=== PATIENT | male | born 1940 | race Caucasian/White ===

== ENCOUNTER 2017-04-21 10:36 | Emergency (ER) | payer OTHER, BC ==
[~2017-04-21] VITALS: Ht 175.3 cm; Wt 120.2 kg
[~2017-04-21 10:36] MED LIST: ASPIRIN; CLONIDINE; INSULIN; METFORMIN; MICARDIS
[2017-04-21 10:45] VITALS: BP_SYST 147
[2017-04-21] MEDS ORDERED: IBUPROFEN 800 MG TABLET PO ONE (11:00)
[2017-04-21] MEDS ORDERED: DIPH-TET-PERTUS Vaccine 0.5 ML VIAL (ADACEL) I.M. ONE (11:00)
[2017-04-21 11:55] VITALS: BP_SYST 136
== END 2017-04-21 11:55 | disposition home or self-care (01) ==
LOC: SED 10:36
DX: S91.332A Puncture wound without foreign body, left foot, initial encounter (principal); R03.0 Elevated blood-pressure reading, without diagnosis of hypertension; E11.9 Type 2 diabetes mellitus without complications; I10 Essential (primary) hypertension; W22.8XXA Striking against or struck by other objects, initial encounter; Y93.01 Activity, walking, marching and hiking; Y92.89 Other specified places as the place of occurrence of the external cause; Y99.8 Other external cause status
CPT/HCPCS: 90715; 99283

== ENCOUNTER 2019-12-09 03:50 | Inpatient (IN) | payer OTHER, BC, SELFPAY ==
[~2019-12-09] VITALS: Ht 175.3 cm; Wt 118.9 kg
[2019-12-09 04:00] VITALS: BP_SYST 166
[2019-12-09] MEDS ORDERED: LABE300T3 PO (04:49)
[2019-12-09] MEDS ORDERED: PIOG30TA70 PO (04:49)
[2019-12-09] MEDS ORDERED: LIP40 PO (04:49)
[2019-12-09] MEDS ORDERED: CAT.2 PO (04:49)
[2019-12-09] MEDS ORDERED: FURO-149 PO (04:49)
[2019-12-09] MEDS ORDERED: HYDR-4038 PO (04:49)
[2019-12-09] MEDS ORDERED: TAMS-11 PO (04:49)
[2019-12-09] MEDS ORDERED: FEBU80TA PO (04:49)
[2019-12-09 05:01] LABS: BILIRUBIN,URINE NEGATIVE (NEGATIVE); BLOOD, URINE NEGATIVE (NEGATIVE); CLARITY/URINE CLEAR (CLEAR); COLOR,URINE YELLOW (YELLOW); GLUCOSE,URINE 3+ (NEGATIVE); KETONES,URINE NEGATIVE (NEGATIVE); LEUKOCYTE ESTERASE ,URINE NEGATIVE (NEGATIVE); NITRITE, URINE NEGATIVE (NEGATIVE); PH,URINE 5.5 (5.0-8.0); PROTEIN URINE 1+ (NEGATIVE); UROBILINOGEN,URINE 0.2 (0.2-1.0)
[2019-12-09 05:11] LABS: BACTERIA,URINE FEW /HPF (None Seen); RBC,URINE 0-3 /HPF (0-3); WBC,URINE 0-3 /HPF (0-3)
[2019-12-09 05:11] LABS: BASOPHILS # (AUTO) 0.1 K/uL (0.0-0.2); EOSINOPHILS # (AUTO) 0.2 K/uL (0.0-0.4); EOSINOPHILS % (AUTO) 4.1 % (0.0-4.0); HEMATOCRIT 31.7 % (36-54); HEMOGLOBIN 10.5 g/dL (14.0-18.0); LYMPHOCYTES # (AUTO) 0.7 K/uL (1.0-5.5); LYMPHOCYTES % (AUTO) 13.7 % (20.5-51.5); MEAN CORPUSCULAR HEMOGLOBIN 30 pg (27-31); MEAN CORPUSCULAR HGB CONC 33 % (32-36); MEAN CORPUSCULAR VOLUME 91 fL (79.0-98.0); MONOCYTES # (AUTO) 0.6 K/uL (0.0-1.0); MONOCYTES % (AUTO) 11.3 % (1.7-9.3); NEUTROPHILS # (AUTO) 3.7 K/uL (1.8-7.7); NEUTROPHILS % (AUTO) 69.9 % (40.0-70.0); PLATELET COUNT (AUTO) 226 K/uL (130-430); RED BLOOD CELL COUNT(AUTO) 3.47 MIL/uL (4.2-6.2); WHITE BLOOD COUNT (AUTO) 5.3 K/uL (4.8-10.8)
[2019-12-09 05:24] LABS: ANION GAP 9 (5-15); CALCIUM 8.9 mg/dL (8.4-11.0); CHLORIDE 104 mmol/L (98-107); CREATININE 2.68 mg/dL (0.55-1.30); GLUCOSE 382 mg/dL (70-99); SODIUM SERUM 137 mmol/L (136-145); UREA NITROGEN, BLOOD 47 mg/dL (8-21)
[2019-12-09 05:27] LABS: PROTHROMBIN TIME 10.4 SECS (9.5-12.5)
[2019-12-09 05:29] LABS: ALANINE AMINOTRANSFERASE 58 U/L (12-78); ALBUMIN 3.1 g/dL (3.4-4.8); ASPARTATE AMINOTRANSFERASE 28 U/L (10-37); C-REACTIVE PROTEIN QUANT 0.3 mg/dL (0-0.5); LACTATE DEHYDROGENASE 208 U/L (85-227); TOTAL BILIRUBIN 0.9 mg/dL (0.0-1.0)
[2019-12-09] MEDS ORDERED: FUROSEMIDE 100 MG/10 ML VIAL IVP ONE (07:00)
[2019-12-09] MEDS ORDERED: ALBUTEROL MDI INHALATION 8 GM INH INH PRN (10:15)
[2019-12-09] MEDS ORDERED: ACETAMINOPHEN 325 MG TABLET PO PRN (10:15)
[2019-12-09] MEDS ORDERED: ASPIRIN 81 MG TAB.CHEW PO ONE (11:00)
[2019-12-09] MEDS ORDERED: hydrALAZINE HCL 25 MG TABLET PO ONE (11:00)
[2019-12-09] MEDS ORDERED: FAMOTIDINE 20 MG TABLET PO ONE (11:00)
[2019-12-09] MEDS ORDERED: ALBUTEROL SULFATE 0.083% 2.5 MG/3 ML VIAL.NEB INH PRN (12:30)
[2019-12-09] MEDS: INSULIN LISPRO SLIDING SCALE 100 UNITS/ML VIAL (humaLOG) SUBCUT PRN ×2 (12:35→21:43)
[2019-12-09] MEDS ORDERED: INSULIN Lispro 100 UNITS/ML VIAL (humaLOG) ONE (12:51)
[2019-12-09] MEDS ORDERED: METOLAZONE 5 MG TABLET PO ONE (15:00)
[2019-12-09] MEDS ORDERED: CARVEDILOL 12.5 MG TABLET (COREG) PO ONE (17:00)
[2019-12-09] MEDS ORDERED: INSULIN GLARGINE 100 UNITS/ML 10 ML VIAL SUBCUT ONE (17:30)
[2019-12-09 20:53] VITALS: BP_SYST 132
[2019-12-09] MEDS ORDERED: hydrALAZINE HCL 25 MG TABLET PO SCH (21:00)
[2019-12-09] MEDS: hydrALAZINE HCL 25 MG TABLET PO SCH (21:40)
[2019-12-09] MEDS: TAMSULOSIN HCL 0.4 MG CAP PO SCH (21:40)
[2019-12-09] MEDS: FUROSEMIDE 40 MG/4 ML VIAL IVP SCH (21:43)
[2019-12-10] VITALS: BP_SYST 151
[2019-12-10 04:00] VITALS: BP_SYST 137
[2019-12-10] MEDS: INSULIN LISPRO SLIDING SCALE 100 UNITS/ML VIAL (humaLOG) SUBCUT PRN ×4 (06:21→21:26)
[2019-12-10] MEDS ORDERED: INSULIN NPH/REGULAR 70-30, 100 UNITS/ML, 10 ML VIAL SUBCUT SCH (07:00)
[2019-12-10 07:40] LABS: BASOPHILS # (AUTO) 0.1 K/uL (0.0-0.2); EOSINOPHILS # (AUTO) 0.2 K/uL (0.0-0.4); EOSINOPHILS % (AUTO) 3.9 % (0.0-4.0); HEMATOCRIT 32.8 % (36-54); HEMOGLOBIN 11.2 g/dL (14.0-18.0); LYMPHOCYTES # (AUTO) 0.8 K/uL (1.0-5.5); LYMPHOCYTES % (AUTO) 14.2 % (20.5-51.5); MEAN CORPUSCULAR HEMOGLOBIN 31 pg (27-31); MEAN CORPUSCULAR HGB CONC 34 % (32-36); MEAN CORPUSCULAR VOLUME 90 fL (79.0-98.0); MONOCYTES # (AUTO) 0.7 K/uL (0.0-1.0); MONOCYTES % (AUTO) 12.1 % (1.7-9.3); NEUTROPHILS # (AUTO) 3.9 K/uL (1.8-7.7); NEUTROPHILS % (AUTO) 68.8 % (40.0-70.0); PLATELET COUNT (AUTO) 248 K/uL (130-430); RED BLOOD CELL COUNT(AUTO) 3.66 MIL/uL (4.2-6.2); RED CELL DISTRIBUTION WIDTH 14.9 % (9.0-15.0); WHITE BLOOD COUNT (AUTO) 5.7 K/uL (4.8-10.8)
[2019-12-10 08:38] LABS: SODIUM SERUM 139 mmol/L (136-145)
[2019-12-10 08:39] LABS: ALANINE AMINOTRANSFERASE 53 U/L (12-78); ALBUMIN 1.3 g/dL (3.4-4.8); ANION GAP 9 (5-15); ASPARTATE AMINOTRANSFERASE 25 U/L (10-37); CALCIUM 9.5 mg/dL (8.4-11.0); CHLORIDE 104 mmol/L (98-107); CREATININE 2.59 mg/dL (0.55-1.30); GLUCOSE 280 mg/dL (70-99); POTASSIUM 3.7 mmol/L (3.5-5.1); TOTAL BILIRUBIN 1.2 mg/dL (0.0-1.0); UREA NITROGEN, BLOOD 42 mg/dL (8-21)
[2019-12-10 08:40] LABS: CHOLESTEROL 127 mg/dL (<200); HDL CHOLESTEROL 51 mg/dL (>45); LDL CHOLESTEROL 61 mg/dL (<100); THYROID STIMULATING HORMONE 1.87 uIu/mL (0.34-4.82); TRIGLYCERIDES 146 mg/dL (30-150)
[2019-12-10] MEDS: ASPIRIN 81 MG TAB.CHEW PO SCH (09:00)
[2019-12-10] MEDS: FUROSEMIDE 40 MG/4 ML VIAL IVP SCH ×2 (09:00→21:20)
[2019-12-10] MEDS: CARVEDILOL 12.5 MG TABLET (COREG) PO SCH ×2 (09:00→21:20)
[2019-12-10] MEDS: FAMOTIDINE 20 MG TABLET PO SCH (09:00)
[2019-12-10] MEDS: hydrALAZINE HCL 25 MG TABLET PO SCH ×2 (09:00→21:20)
[2019-12-10] MEDS: TAMSULOSIN HCL 0.4 MG CAP PO SCH ×2 (09:00→21:20)
[2019-12-10] MEDS: ATORVASTATIN 20 MG TABLET PO SCH (09:00)
[2019-12-10 10:49] VITALS: BP_SYST 164
[2019-12-10 12:00] VITALS: BP_SYST 136
[2019-12-10] MEDS: INSULIN NPH/REGULAR 70-30, 100 UNITS/ML, 10 ML VIAL SUBCUT SCH (17:41)
[2019-12-10 19:00] VITALS: BP_SYST 156
[2019-12-10 20:00] VITALS: BP_SYST 156
[2019-12-11] VITALS: BP_SYST 110
[2019-12-11] MEDS: INSULIN NPH/REGULAR 70-30, 100 UNITS/ML, 10 ML VIAL SUBCUT SCH (06:43)
[2019-12-11] MEDS: INSULIN LISPRO SLIDING SCALE 100 UNITS/ML VIAL (humaLOG) SUBCUT PRN ×3 (06:43→17:30)
[2019-12-11 07:39] LABS: ANION GAP 9 (5-15); CALCIUM 10.1 mg/dL (8.4-11.0); CHLORIDE 99 mmol/L (98-107); CREATININE 2.75 mg/dL (0.55-1.30); GLUCOSE 303 mg/dL (70-99); POTASSIUM 3.5 mmol/L (3.5-5.1); SODIUM SERUM 137 mmol/L (136-145); UREA NITROGEN, BLOOD 46 mg/dL (8-21)
[2019-12-11 08:00] VITALS: BP_SYST 164
[2019-12-11 08:23] VITALS: BP_SYST 110
[2019-12-11] MEDS: FAMOTIDINE 20 MG TABLET PO SCH (08:27)
[2019-12-11] MEDS: FUROSEMIDE 40 MG/4 ML VIAL IVP SCH (08:27)
[2019-12-11] MEDS: TAMSULOSIN HCL 0.4 MG CAP PO SCH (08:27)
[2019-12-11] MEDS: ATORVASTATIN 20 MG TABLET PO SCH (08:27)
[2019-12-11] MEDS: CARVEDILOL 12.5 MG TABLET (COREG) PO SCH (08:27)
[2019-12-11] MEDS: ASPIRIN 81 MG TAB.CHEW PO SCH (08:27)
[2019-12-11] MEDS: hydrALAZINE HCL 25 MG TABLET PO SCH (08:27)
[2019-12-11 12:00] VITALS: BP_SYST 150
[2019-12-11 14:58] VITALS: BP_SYST 126
[2019-12-11] MEDS ORDERED: ALBMDI INH (16:29)
[2019-12-11] MEDS ORDERED: DOXY100C PO (16:29)
[2019-12-11] MEDS ORDERED: ASPI-1155 PO (16:30)
[2019-12-11] MEDS ORDERED: CARV12.548 PO (16:31)
[2019-12-11] MEDS ORDERED: FAMO20TA8 PO (16:32)
[2019-12-11] MEDS ORDERED: INSNPH7030 SUBCUT (16:33)
[2019-12-11] MEDS ORDERED: INSULIN NPH/REGULAR 70-30, 100 UNITS/ML, 10 ML VIAL SUBCUT SCH (17:00)
[2019-12-11] MEDS ORDERED: FUROSEMIDE 20 MG TABLET PO SCH (21:00)
[2019-12-11] MEDS ORDERED: CARVEDILOL 12.5 MG TABLET (COREG) PO SCH (21:00)
== END 2019-12-11 17:54 | disposition home or self-care (01) | DRG 291 ==
LOC: SED 03:50 → STU 07:27
PROVIDERS: ADMIT Internal Medicine; ATTEND Internal Medicine
DX: I13.2 Hypertensive heart and chronic kidney disease with heart failure and with stage 5 chronic kidney disease, or end stage renal disease (principal); I50.43 Acute on chronic combined systolic (congestive) and diastolic (congestive) heart failure; N18.5 Chronic kidney disease, stage 5; I42.0 Dilated cardiomyopathy; B35.3 Tinea pedis; R79.89 Other specified abnormal findings of blood chemistry; E11.69 Type 2 diabetes mellitus with other specified complication; M10.9 Gout, unspecified; D63.1 Anemia in chronic kidney disease; G47.33 Obstructive sleep apnea (adult) (pediatric); E11.22 Type 2 diabetes mellitus with diabetic chronic kidney disease; E11.65 Type 2 diabetes mellitus with hyperglycemia; Z20.828 Contact with and (suspected) exposure to other viral communicable diseases; E66.01 Morbid (severe) obesity due to excess calories; I34.0 Nonrheumatic mitral (valve) insufficiency; E88.81 Metabolic syndrome and other insulin resistance; E78.5 Hyperlipidemia, unspecified; Z79.899 Other long term (current) drug therapy; Z91.81 History of falling; Z79.4 Long term (current) use of insulin; Z68.38 Body mass index [BMI] 38.0-38.9, adult
CPT/HCPCS: 36415; 36600; 71045; 76770; 80048; 80053; 80061; 81000-TC; 82570-TC; 82728; 82803-TC; 82962; 83036; 83605; 83615-TC; 83735-TC; 83880; 84302-TC; 84443-TC; 84484; 85025; 85379; 85384-TC; 85610-TC; 85730-TC; 86140; 87040-TC; 87086; 93005; 93306; 96372; 96374; 97161-GP; 99285; G0378; J1815; J1940; U0003-CS

== ENCOUNTER 2022-06-28 10:23 | Inpatient (IN) | payer OTHER, BC ==
[~2022-06-28] VITALS: Ht 172.7 cm; Wt 106.3 kg
[~2022-06-28 10:23] MED LIST changes: +ALBMDI INH; +ASPI-1155 PO; -ASPIRIN; +CARV12.548 PO; -CLONIDINE; +DOXY100C PO; +FAMO20TA8 PO; +FEBU80TA PO; +FURO-149 PO; +HYDR-4038 PO; +INSNPH7030 SUBCUT; -INSULIN; +LIP40 PO; -METFORMIN; -MICARDIS; +TAMS-11 PO
[2022-06-28 10:27] VITALS: BP_SYST 148
[2022-06-28 11:17] LABS: BASOPHILS # (AUTO) 0.1 K/uL (0.0-0.2); EOSINOPHILS # (AUTO) 0.2 K/uL (0.0-0.4); EOSINOPHILS % (AUTO) 2.9 % (0.0-4.0); HEMATOCRIT 38.3 % (36-54); HEMOGLOBIN 13.3 g/dL (14.0-18.0); LYMPHOCYTES # (AUTO) 1.3 K/uL (1.0-5.5); LYMPHOCYTES % (AUTO) 17.6 % (20.5-51.5); MEAN CORPUSCULAR HEMOGLOBIN 31 pg (27-31); MEAN CORPUSCULAR HGB CONC 35 % (32-36); MEAN CORPUSCULAR VOLUME 89 fL (79.0-98.0); MONOCYTES # (AUTO) 0.8 K/uL (0.0-1.0); MONOCYTES % (AUTO) 10.1 % (1.7-9.3); NEUTROPHILS # (AUTO) 5.2 K/uL (1.8-7.7); NEUTROPHILS % (AUTO) 68.4 % (40.0-70.0); PLATELET COUNT (AUTO) 275 K/uL (130-430); RED BLOOD CELL COUNT(AUTO) 4.32 MIL/uL (4.2-6.2); WHITE BLOOD COUNT (AUTO) 7.6 K/uL (4.8-10.8)
[2022-06-28] MEDS ORDERED: traMADol HCL HCL 50 MG TABLET (ULTRAM) PO ONE (11:30)
[2022-06-28 11:33] LABS: ANION GAP 7 (5-15); CALCIUM 9.7 mg/dL (8.4-11.0); CHLORIDE 103 mmol/L (98-107); CREATININE 2.73 mg/dL (0.55-1.30); GLUCOSE 157 mg/dL (70-99); UREA NITROGEN, BLOOD 48 mg/dL (8-21)
[2022-06-28 11:40] LABS: ALANINE AMINOTRANSFERASE 18 U/L (12-78); ALBUMIN 3.2 g/dL (3.4-4.8); ASPARTATE AMINOTRANSFERASE 13 U/L (10-37); TOTAL BILIRUBIN 0.6 mg/dL (0.0-1.0)
[2022-06-28 13:46] LABS: BILIRUBIN,URINE NEGATIVE (NEGATIVE); CLARITY/URINE CLEAR (CLEAR); COLOR,URINE YELLOW (YELLOW); GLUCOSE,URINE 1+ (NEGATIVE); KETONES,URINE NEGATIVE (NEGATIVE); LEUKOCYTE ESTERASE ,URINE NEGATIVE (NEGATIVE); NITRITE, URINE NEGATIVE (NEGATIVE); PROTEIN URINE 3+ (NEGATIVE); UROBILINOGEN,URINE 0.2 (0.2-1.0)
[2022-06-28 14:13] LABS: BLOOD, URINE TRACE (NEGATIVE)
[2022-06-28 14:14] LABS: BACTERIA,URINE FEW /HPF (None Seen); MUCUS,URINE None Seen /LPF (None Seen); RBC,URINE 0-3 /HPF (0-3); WBC,URINE 0-3 /HPF (0-3)
[2022-06-28] MEDS ORDERED: INSU500I SUBCUT (14:31)
[2022-06-28] MEDS ORDERED: PARO40TA80 PO (14:31)
[2022-06-28] MEDS ORDERED: VALS160T29 PO (14:31)
[2022-06-28] MEDS ORDERED: PARO-41 PO (14:31)
[2022-06-28] MEDS ORDERED: D5/0.45 NS 1,000 ML IV SCH (14:45)
[2022-06-28] MEDS ORDERED: D5/0.45 NS 500 ML IV SCH (16:00)
[2022-06-28] MEDS ORDERED: VALSARTAN Non-Formulary 160 MG TABLET PO SCH (16:00)
[2022-06-28] MEDS ORDERED: ASPIRIN 81 MG TAB.CHEW PO ONE (16:45)
[2022-06-28] MEDS ORDERED: LOSARTAN POTASSIUM 50 MG TABLET (COZAAR) PO ONE (17:00)
[2022-06-28] MEDS ORDERED: CARVEDILOL 12.5 MG TABLET (COREG) PO ONE (17:00)
[2022-06-28 18:00] VITALS: BP_SYST 145
[2022-06-28 20:00] VITALS: BP_SYST 130
[2022-06-28] MEDS: ATORVASTATIN 20 MG TABLET PO SCH (21:02)
[2022-06-28] MEDS: INSULIN REGULAR, HUMAN 100 UNITS/ML, 3 ML VIAL (humuLIN R) SUBCUT PRN (22:32)
[2022-06-29] VITALS: BP_SYST 146
[2022-06-29] MEDS: INSULIN REGULAR, HUMAN 100 UNITS/ML, 3 ML VIAL (humuLIN R) SUBCUT PRN ×4 (07:08→22:49)
[2022-06-29 08:00] VITALS: BP_SYST 109
[2022-06-29] MEDS: LOSARTAN POTASSIUM 50 MG TABLET (COZAAR) PO SCH (08:19)
[2022-06-29] MEDS: CARVEDILOL 12.5 MG TABLET (COREG) PO SCH ×2 (08:19→22:45)
[2022-06-29] MEDS ORDERED: ASPIRIN 81 MG TAB.CHEW PO SCH (09:00)
[2022-06-29 12:00] VITALS: BP_SYST 155
[2022-06-29 12:28] LABS: ALANINE AMINOTRANSFERASE 15 U/L (12-78); ALBUMIN 2.7 g/dL (3.4-4.8); ANION GAP 8 (5-15); ASPARTATE AMINOTRANSFERASE 15 U/L (10-37); CALCIUM 8.9 mg/dL (8.4-11.0); CHLORIDE 99 mmol/L (98-107); CREATININE 2.71 mg/dL (0.55-1.30); TOTAL BILIRUBIN 0.7 mg/dL (0.0-1.0); UREA NITROGEN, BLOOD 49 mg/dL (8-21)
[2022-06-29 12:30] LABS: GLUCOSE 408 mg/dL (70-99)
[2022-06-29] MEDS ORDERED: HYDROcodone/ACETAMIN 10-325 MG TAB PO PRN (13:00)
[2022-06-29] MEDS ORDERED: ONDANSETRON HCL 4 MG/2 ML VIAL IVP PRN (13:00)
[2022-06-29] MEDS ORDERED: INSULIN REGULAR, HUMAN 100 UNITS/ML, 3 ML VIAL (humuLIN R) SUBCUT PRN (13:00)
[2022-06-29] MEDS ORDERED: ACETAMINOPHEN 325 MG TABLET PO PRN ×2 (13:00→13:30)
[2022-06-29] MEDS ORDERED: NALOXONE HCL 0.4 MG/ML AMP (NARCAN) IVP PRN ×2 (13:00)
[2022-06-29] MEDS ORDERED: HYDROcodone/ACETAMIN 5-325 MG TAB (NORCO/ VICODIN) PO PRN (13:00)
[2022-06-29] MEDS: NORMAL SALINE 5 ML DISP.SYRIN IVF SCH ×2 (14:03→22:44)
[2022-06-29] MEDS ORDERED: D5/0.45 NS 500 ML IV SCH (14:45)
[2022-06-29 16:00] VITALS: BP_SYST 148
[2022-06-29 20:30] VITALS: BP_SYST 147
[2022-06-29] MEDS: TAMSULOSIN HCL 0.4 MG CAP PO SCH (22:42)
[2022-06-29] MEDS: ATORVASTATIN 20 MG TABLET PO SCH (22:43)
[2022-06-30 02:42] VITALS: BP_SYST 113
[2022-06-30] MEDS: NORMAL SALINE 5 ML DISP.SYRIN IVF SCH ×3 (06:37→22:41)
[2022-06-30] MEDS: INSULIN REGULAR, HUMAN 100 UNITS/ML, 3 ML VIAL (humuLIN R) SUBCUT PRN ×4 (06:39→22:43)
[2022-06-30 08:00] VITALS: BP_SYST 141
[2022-06-30 08:16] LABS: BASOPHILS # (AUTO) 0.1 K/uL (0.0-0.2); BASOPHILS % (AUTO) 0.9 % (0.0-2.0); EOSINOPHILS # (AUTO) 0.4 K/uL (0.0-0.4); EOSINOPHILS % (AUTO) 4.6 % (0.0-4.0); HEMATOCRIT 35.7 % (36-54); HEMOGLOBIN 12.4 g/dL (14.0-18.0); LYMPHOCYTES # (AUTO) 1.4 K/uL (1.0-5.5); LYMPHOCYTES % (AUTO) 17.8 % (20.5-51.5); MEAN CORPUSCULAR HEMOGLOBIN 31 pg (27-31); MEAN CORPUSCULAR HGB CONC 35 % (32-36); MEAN CORPUSCULAR VOLUME 90 fL (79.0-98.0); MONOCYTES # (AUTO) 0.7 K/uL (0.0-1.0); MONOCYTES % (AUTO) 8.5 % (1.7-9.3); NEUTROPHILS # (AUTO) 5.3 K/uL (1.8-7.7); NEUTROPHILS % (AUTO) 68.2 % (40.0-70.0); PLATELET COUNT (AUTO) 240 K/uL (130-430); RED BLOOD CELL COUNT(AUTO) 3.97 MIL/uL (4.2-6.2); RED CELL DISTRIBUTION WIDTH 13.8 % (9.0-15.0); WHITE BLOOD COUNT (AUTO) 7.8 K/uL (4.8-10.8)
[2022-06-30] MEDS: LOSARTAN POTASSIUM 50 MG TABLET (COZAAR) PO SCH (08:23)
[2022-06-30] MEDS: ASPIRIN 81 MG TAB.CHEW PO SCH (08:23)
[2022-06-30] MEDS: PARoxetine HCL 20 MG TABLET PO SCH (08:23)
[2022-06-30] MEDS: CARVEDILOL 12.5 MG TABLET (COREG) PO SCH ×2 (08:23→22:40)
[2022-06-30] MEDS: TAMSULOSIN HCL 0.4 MG CAP PO SCH ×2 (08:23→22:39)
[2022-06-30 08:37] LABS: ANION GAP 9 (5-15); CHLORIDE 102 mmol/L (98-107); CREATININE 2.63 mg/dL (0.55-1.30); GLUCOSE 348 mg/dL (70-99); PHOSPHORUS 3.6 mg/dL (2.7-4.5); UREA NITROGEN, BLOOD 51 mg/dL (8-21)
[2022-06-30] MEDS ORDERED: NON-FORMULARY MEDICATION (Febuxostat (Uloric) 40 MG) PO SCH (09:00)
[2022-06-30] MEDS ORDERED: POLYETHYLENE GLYCOL 3350, 17 GM/ POWD.PACK PO ONE (11:15)
[2022-06-30] MEDS ORDERED: DOCUSATE SODIUM 100 MG CAPSULE PO ONE (11:15)
[2022-06-30 12:53] VITALS: BP_SYST 125
[2022-06-30 16:00] VITALS: BP_SYST 132
[2022-06-30 21:00] VITALS: BP_SYST 135
[2022-06-30] MEDS: DOCUSATE SODIUM 100 MG CAPSULE PO SCH (22:39)
[2022-06-30] MEDS: ATORVASTATIN 20 MG TABLET PO SCH (22:40)
[2022-06-30] MEDS: LORazepam 2 MG/ML VIAL IVP PRN (22:42)
[2022-07-01] MEDS: LORazepam 2 MG/ML VIAL IVP PRN (02:31)
[2022-07-01 04:29] VITALS: BP_SYST 166
[2022-07-01] MEDS: NORMAL SALINE 5 ML DISP.SYRIN IVF SCH (06:01)
[2022-07-01] MEDS: INSULIN REGULAR, HUMAN 100 UNITS/ML, 3 ML VIAL (humuLIN R) SUBCUT PRN ×2 (06:03→11:43)
[2022-07-01 06:35] LABS: BASOPHILS % (AUTO) 0.5 % (0.0-2.0); EOSINOPHILS # (AUTO) 0.2 K/uL (0.0-0.4); EOSINOPHILS % (AUTO) 1.6 % (0.0-4.0); HEMATOCRIT 35.5 % (36-54); HEMOGLOBIN 12.2 g/dL (14.0-18.0); LYMPHOCYTES # (AUTO) 0.9 K/uL (1.0-5.5); LYMPHOCYTES % (AUTO) 9.8 % (20.5-51.5); MEAN CORPUSCULAR HEMOGLOBIN 31 pg (27-31); MEAN CORPUSCULAR HGB CONC 34 % (32-36); MEAN CORPUSCULAR VOLUME 90 fL (79.0-98.0); MONOCYTES # (AUTO) 0.6 K/uL (0.0-1.0); MONOCYTES % (AUTO) 5.9 % (1.7-9.3); NEUTROPHILS # (AUTO) 7.9 K/uL (1.8-7.7); NEUTROPHILS % (AUTO) 82.2 % (40.0-70.0); PLATELET COUNT (AUTO) 241 K/uL (130-430); RED BLOOD CELL COUNT(AUTO) 3.96 MIL/uL (4.2-6.2); RED CELL DISTRIBUTION WIDTH 13.9 % (9.0-15.0); WHITE BLOOD COUNT (AUTO) 9.6 K/uL (4.8-10.8)
[2022-07-01 07:11] LABS: ALANINE AMINOTRANSFERASE 14 U/L (12-78); ALBUMIN 2.9 g/dL (3.4-4.8); ANION GAP 10 (5-15); ASPARTATE AMINOTRANSFERASE 13 U/L (10-37); CALCIUM 9.2 mg/dL (8.4-11.0); CHLORIDE 105 mmol/L (98-107); CREATININE 2.55 mg/dL (0.55-1.30); GLUCOSE 307 mg/dL (70-99); PHOSPHORUS 3.3 mg/dL (2.7-4.5); TOTAL BILIRUBIN 0.9 mg/dL (0.0-1.0); UREA NITROGEN, BLOOD 46 mg/dL (8-21)
[2022-07-01 08:00] VITALS: BP_SYST 139
[2022-07-01] MEDS ORDERED: POLYETHYLENE GLYCOL 3350, 17 GM/ POWD.PACK PO SCH (09:00)
[2022-07-01] MEDS: ASPIRIN 81 MG TAB.CHEW PO SCH (11:38)
[2022-07-01] MEDS: TAMSULOSIN HCL 0.4 MG CAP PO SCH (11:38)
[2022-07-01] MEDS: PARoxetine HCL 20 MG TABLET PO SCH (11:39)
[2022-07-01] MEDS: LOSARTAN POTASSIUM 50 MG TABLET (COZAAR) PO SCH (11:39)
[2022-07-01] MEDS: DOCUSATE SODIUM 100 MG CAPSULE PO SCH (11:40)
[2022-07-01] MEDS: CARVEDILOL 12.5 MG TABLET (COREG) PO SCH (11:40)
[2022-07-01 12:00] VITALS: BP_SYST 142
[2022-07-01 13:07] LABS: % FREE PSA 48.8 % (.); FREE PSA 0.78 ng/mL; PROSTATE SPECIFIC AG TOTAL 1.6 ng/mL (0.0-4.0)
[2022-07-01] MEDS ORDERED: DOCU-144 PO (13:11)
[2022-07-01] MEDS ORDERED: LIP20 PO (13:11)
[2022-07-01] MEDS ORDERED: LOSA50TA3 PO (13:11)
[2022-07-01] MEDS ORDERED: POLY17PO4 PO (13:11)
[2022-07-01 13:27] VITALS: BP_SYST 142
== END 2022-07-01 18:52 | DRG 725 ==
LOC: SED 10:23 → STU 13:50
PROVIDERS: ADMIT Preventive Medicine Preventive Medicine/Occupational Environmental Medicine; ATTEND Preventive Medicine Preventive Medicine/Occupational Environmental Medicine
DX: N40.1 Benign prostatic hyperplasia with lower urinary tract symptoms (principal); N17.0 Acute kidney failure with tubular necrosis; N13.8 Other obstructive and reflux uropathy; E44.0 Moderate protein-calorie malnutrition; I13.0 Hypertensive heart and chronic kidney disease with heart failure and stage 1 through stage 4 chronic kidney disease, or unspecified chronic kidney disease; E11.21 Type 2 diabetes mellitus with diabetic nephropathy; E11.43 Type 2 diabetes mellitus with diabetic autonomic (poly)neuropathy; I95.1 Orthostatic hypotension; E11.65 Type 2 diabetes mellitus with hyperglycemia; M10.9 Gout, unspecified; E78.5 Hyperlipidemia, unspecified; D64.9 Anemia, unspecified; E88.09 Other disorders of plasma-protein metabolism, not elsewhere classified; K21.9 Gastro-esophageal reflux disease without esophagitis; N18.9 Chronic kidney disease, unspecified; E11.22 Type 2 diabetes mellitus with diabetic chronic kidney disease; N32.9 Bladder disorder, unspecified; Z20.822 Contact with and (suspected) exposure to COVID-19; R53.81 Other malaise; I50.9 Heart failure, unspecified
CPT/HCPCS: 36415; 70450-TC; 71045; 76376; 76770; 80048; 80053; 81000; 82962; 83735; 83880; 84100; 84153; 84484; 85025; 93005; 93306; 97112-GP; 97116-GP; 99285; G0378; J1815; J2060; J2405